=== PATIENT | female | born 1960 | race Caucasian/White ===

== ENCOUNTER 2018-06-11 15:51 | Inpatient (IN) | payer MEDICARE ==
[2018-06-11] MEDS ORDERED: Nicotine Inhaler* 10 MG AMP INH PRN (16:05)
[2018-06-11 16:30] LABS: Hematocrit 41 % (35-47); Hemoglobin 14.1 g/dl (12.0-16.0); Mean Corpuscular HGB Conc 34 g/dl (31-36); Mean Corpuscular Hemoglobin 29 pg (27-31); Mean Corpuscular Volume 85 fL (80-97); Mean Platelet Volume 10.2 fL (7.4-10.4); Platelet Count 193 10^3/ul (150-450); Red Blood Count 4.86 10^6/ul (4.00-5.40); Red Cell Distribution Width 14 % (10.5-15); White Blood Count 7.6 10^3/ul (3.5-10.8)
[2018-06-11 16:46] LABS: ALT 19 U/L (7-52); AST 26 U/L (13-39); Albumin 4.8 g/dL (3.2-5.2); Albumin/Globulin Ratio 1.7 (1-3); Alkaline Phosphatase 78 U/L (34-104); Anion Gap 15 mmol/L (2-11); BUN/Creatinine Ratio 25.6 (8-20); Blood Urea Nitrogen 21 mg/dL (6-24); CO2 Carbon Dioxide 19 mmol/L (22-32); Chloride 103 mmol/L (101-111); EGFR Non-African American 71.9 (>60); Globulin 2.8 g/dL (2-4); Glucose 100 mg/dL (70-100); Potassium 3.5 mmol/L (3.5-5.0); Sodium 137 mmol/L (135-145); Total Protein 7.6 g/dL (6.4-8.9)
[2018-06-11] MEDS ORDERED: LORazepam TAB(*) 1 MG PO ONE (16:49)
[2018-06-11 16:53] LABS: ABS Basophils 0 10^3/ul (0-0.2); ABS Eosinophils 0.1 10^3/ul (0-0.6); ABS Lymphocytes 2.2 10^3/ul (1.0-4.8); ABS Monocytes 0.7 10^3/ul (0-0.8); ABS Neutrophils 4.5 10^3/ul (1.5-7.7)
--- NOTE | 2018-06-11 16:53 | ED ---
Psychiatric Complaint - HPI Summary HPI Summary: This patient is a 57 year old F brought in by the police with a chief complaint of confusion and erratic driving since just AP[employer]EARCH[employer]. The patient rates the pain 10/ 10 in severity. Patient reports hearing voices and severe sadness. Patient denies SI or HI. The patient was picked up by police after driving and running into things. It was determined that she is having a mental health crisis and this is not due to drugs/alcohol. The patient states she is tired and trying to take care of everyone. The patient is talkative and cooperative, but also tearful. Pt states she has a torn rotator cuff on the right side. Pt states she recently had to sell her house and current lives with her great aunt, who has a lot of health issues. She cannot recall her medication. The patient doesnt think she has a psychiatric disorder and her doctor would give her any medication she wants. The voices in her head are telling her to go home, to the kids, but they are in their 30s and no longer live with her. Patient reports that she has not had any alcohol or drugs today. - History Of Current Complaint Chief Complaint: EDMentalHealth Time Seen by Provider: 06/11/18 16:04 Hx Obtained From: Patient Onset/Duration: Sudden Onset Character: Depressed Aggravating Factor(s): Recent Stress - Allergies/Home Medications Allergies/Adverse Reactions: Allergies Allergy/AdvReac Type Severity Reaction Status Date / Time Adhesive Tape Allergy Rash Verified 06/11/18 16:03 Iodinated Contrast- Oral and Allergy Anaphylatic Verified 06/11/18 16:03 IV Dye Shock latex Allergy Rash Verified 06/11/18 16:03 mesalamine Allergy Muscle Ache Verified 06/11/18 16:03 Sulfa (Sulfonamide Allergy Unknown Verified 06/11/18 16:03 Antibiotics) Reaction Details sumatriptan Allergy Difficulty Verified 06/11/18 16:03 Breathing PMH/Surg Hx/FS Hx/Imm Hx Endocrine/Hematology History: Denies: Hx Diabetes Cardiovascular History: Reports: Hx Hypertension Denies: Hx Pacemaker/ICD Respiratory History: Reports: Hx Asthma, Hx Chronic Obstructive Pulmonary Disease (COPD) History: Denies: Hx Renal Disease Sensory History: Denies: Hx Hearing Aid Psychiatric History: Denies: Hx Panic Disorder - Cancer History Cancer Type, Location and Year: BASAL CELL NOSE. BACK OF HIP - Surgical History Surgery Procedure, Year, and Place: 3 C SECTIONS. 6X LEFT KNEE SURGERY-TOTAL LEFT KNEE REPLACEMENT 2009. ENDOMETRIAL ABLASION Infectious Disease History: No Infectious Disease History: Denies: Traveled Outside the [place] in Last 30 Days - Family History Known Family History: Positive: Unknown - difficulties remembering - Social History Lives: With Family - great aunt Review of Systems Positive: Other - tearful Positive: Other - severe sadness, hearing voices, confusion All Other Systems Reviewed And Are Negative: Yes Physical Exam - Summary Physical Exam Summary: GENERAL: Patient is a well-developed and nourished female who is lying comfortable in the stretcher. Patient is not in any acute respiratory distress. HEAD AND FACE: Normocephalic EYES: PERRLA, EOMI x 2. EARS: Hearing grossly intact. MOUTH: Oropharynx within normal limits. NECK: Supple, trachea is midline, no adenopathy, no JVD, no carotid bruit. CHEST: Symmetric, no tenderness at palpation LUNGS: Clear to auscultation bilaterally. No wheezing or crackles. CVS: Regular rate and rhythm, S1 and S2 present, no murmurs or gallops appreciated. ABDOMEN: Soft, non-tender. Bowel sounds are normal. No abdominal abnormal pulsations. EXTREMITIES: Full ROM in all major joints, no edema, no cyanosis or clubbing. NEURO: Alert and oriented x 3. No acute neurological deficits. Speech is normal and follows commands. SKIN: Dry and warm Psych: labile affect, but its mainly sad. Positive auditory hallucinations. No SI or HI. Triage Information Reviewed: Yes Vital Signs On Initial Exam: Initial Vitals Temp Pulse Resp BP Pulse Ox 99.2 F 105 16 138/104 96 06/11/18 15:56 06/11/18 15:56 06/11/18 15:56 06/11/18 15:56 06/11/18 15:56 Vital Signs Reviewed: Yes Diagnostics - Vital Signs Vital Signs Temp Pulse Resp BP Pulse Ox 06/11/18 15:56 99.2 F 105 16 138/104 96 - Laboratory Lab Results: Lab Results 06/11/18 06/11/18 Range/Units 16:20 16:20 WBC 7.6 (3.5-10.8) 10^3/ul RBC 4.86 (4.00-5.40) 10^6/ul Hgb 14.1 (12.0-16.0) g/dl Hct 41 (35-47) % MCV 85 (80-97) fL MCH 29 (27-31) pg MCHC 34 (31-36) g/dl RDW 14 (10.5-15) % Plt Count 193 (150-450) 10^3/ul MPV 10.2 (7.4-10.4) fL Neut % (Auto) Pending Lymph % (Auto) Pending Gibson % (Auto) Pending Eos % (Auto) Pending Baso % (Auto) Pending Absolute Neuts (auto) Pending Absolute Lymphs (auto) Pending Absolute Monos (auto) Pending Absolute Eos (auto) Pending Absolute Basos (auto) Pending Absolute Nucleated RBC Pending Nucleated RBC % Pending Sodium 137 (135-145) mmol/L Potassium 3.5 (3.5-5.0) mmol/L Chloride 103 (101-111) mmol/L Carbon Dioxide 19 L (22-32) mmol/L Anion Gap 15 H (2-11) mmol/L BUN 21 (6-24) mg/dL Creatinine 0.82 (0.51-0.95) mg/dL Est GFR ( Amer) 86.9 (>60) Est GFR (Non-Af Amer) 71.9 (>60) BUN/Creatinine Ratio 25.6 H (8-20) Glucose 100 (70-100) mg/dL Calcium 10.0 (8.6-10.3) mg/dL Total Bilirubin 0.70 (0.2-1.0) mg/dL AST 26 (13-39) U/L ALT 19 (7-52) U/L Alkaline Phosphatase 78 (34-104) U/L Total Protein 7.6 (6.4-8.9) g/dL Albumin 4.8 (3.2-5.2) g/dL Globulin 2.8 (2-4) g/dL Albumin/Globulin Ratio 1.7 (1-3) TSH Pending Salicylates Pending Acetaminophen Pending Serum Alcohol Pending Result Diagrams: 18 16:20 18 16:20 Lab Statement: Any lab studies that have been ordered have been reviewed, and results considered in the medical decision making process. Re-Evaluation - Re-Evaluation First Eval Re-Evaluation Time: 17:20 Comment: The patient was found to have Crohn's, lyme disease, diabetes, and lupus, all of which she has not been taking her medication for Course/Dx - Course Course Of Treatment: This patient is a 57 year old F brought in by the police with a chief complaint of confusion and erratic driving since just APPLIED RESEARCHER. The patient rates the pain 10/10 in severity. Patient reports hearing voices and severe sadness. Patient denies SI or HI. Test results with no significant abnormalities. In the ED course the patient was given a Nicotine inhaler, IV fluids, and Lorazepam. The patient will be signed out by Dr. Estevez to Dr. Murillo , awaiting mental health evaluation. - Differential Dx/Clinical Impression Provider Diagnosis: Psychiatric illness Discharge - Sign-Out/Discharge Documenting (check all that apply): Sign-Out Patient Signing out patient TO: Haja Murillo - Discharge Plan Referrals: Pelon Garcia, [Primary Care Provider] - - Attestation Statements Document Initiated by Scribe: Yes Documenting Scribe: Anmol Hsu Provider For Whom Cheryle is Documenting (Include Credential): Giacomo Estevez MD Scribe Attestation: Anmol Sauceda scribed for Giacomo Estevez MD on 06/11/18 at 1842. Scribe Documentation Reviewed: Yes Provider Attestation: The documentation as recorded by the Anmol gutierrez accurately reflects the service I personally performed and the decisions made by me, Giacomo Estevez MD Status of Scribe Document: Viewed
[2018-06-11 16:57] LABS: ABS Neutrophils 4.18 10^3/ul (1.5-7.7); Lymphocytes % 38 %; Monocytes % 5 %; Neutrophil % 55 %
[2018-06-11 16:58] LABS: ABS Basophils 0.076 10^3/ul (0-0.2); ABS Eosinophils 0.076 10^3/ul (0-0.6)
[2018-06-11] MEDS ORDERED: NS 0.9% 1000 ML* 1,000 ML IV ONE (17:09)
[2018-06-11] MEDS ORDERED: LORazepam INJ* 2 MG/ML 1 ML VIAL IV PUSH ONE (17:09)
[2018-06-11 17:13] LABS: Acetaminophen < 15 mcg/mL; Alcohol < 10 mg/dL (<10); Salicylate < 2.50 mg/dL (<30)
--- NOTE | 2018-06-11 19:07 | ED ---
Progress - Progress Note Progress Note: Patient is received as a sign out from Dr. Estevez to Dr. Murillo at 1900 06/11/18 shift change pending E. 0127 - Patient's case was reviewed by Dr. Sepulveda, patient to be involuntarily admitted with Dx bipolar disorder with psychosis. Dr. Murillo is agreeable with this plan. - Consult/PCP Time Called: 17:20 Re-Evaluation - Re-Evaluation First Eval Re-Evaluation Time: 17:20 Comment: The patient was found to have Crohn's, lyme disease, diabetes, and lupus, all of which she has not been taking her medication for Course/Dx - Course Course Of Treatment: Patient is received as a sign out from Dr. Estevez to Dr. Murillo at 1900 06/11/18 shift change pending E. 0127 - Patient's case was reviewed by Dr. Sepulveda, patient to be involuntarily admitted with Dx bipolar disorder with psychosis. Dr. Murillo is agreeable with this plan. - Diagnoses Provider Diagnoses: Bipolar disorder with psychotic features - Provider Notifications Discussed Care Of Patient With: Waqas Sepulveda Time Discussed With Above Provider: 01:27 Instructed by Provider To: Other - 0127 - Patient's case was reviewed by Dr. Sepulveda, patient to be involuntarily admitted with Dx bipolar disorder with psychosis. Dr. Murillo is agreeable with this plan. Discharge - Sign-Out/Discharge Documenting (check all that apply): Patient Departure - admit - Discharge Plan Condition: Good [place] [place]errals: Pelon Garcia, [Primary Care Provider] - - Attestation Statements Document Initiated by Scribe: Yes Documenting Scribe: LILIBETH GONZALES Provider For Whom Klaudiaibjoe is Documenting (Include Credential): GERA MURILLO MD Scribjoe Attestation: LILIBETH Sauceda , scribed for GERA MURILLO MD on 06/12/18 at 0132. Status of Scribe Document: Ready
[2018-06-12] MEDS ORDERED: diPHENhydraMINE PO* 50 MG ONE (01:38)
[2018-06-12] MEDS ORDERED: OLANzapine TAB* 5 MG ONE (01:38)
[2018-06-12] MEDS ORDERED: Al Hydrox/Mg Hydrox/Simet LIQ* 30 ML UDC PO PRN (03:02)
[2018-06-12] MEDS ORDERED: OLANzapine TAB* 5 MG PO ONE (03:15)
[2018-06-12] MEDS: Acetaminophen TAB* 325 MG PO PRN ×2 (03:45→09:18)
[2018-06-12] MEDS: Vitamin THERAPEUTIC TAB PO SCH (08:34)
[2018-06-12] MEDS ORDERED: clonazePAM TAB(*) 1 MG PO ONE (12:30)
[2018-06-12] MEDS ORDERED: LORazepam TAB(*) 1 MG PO SCH (13:00)
[2018-06-12] MEDS: celeCOXIB CAP* 100 MG PO SCH (13:01)
[2018-06-12] MEDS: Atenolol TAB* 25 MG PO SCH (13:01)
[2018-06-12] MEDS: Sertraline* 50 MG TAB PO SCH (13:01)
[2018-06-12] MEDS: Omeprazole CAP* 20 MG PO SCH (18:35)
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
[2018-06-12] MEDS: QUEtiapine TAB* 100 MG PO SCH (21:00)
[2018-06-13] MEDS: Omeprazole CAP* 20 MG PO SCH (11:10)
[2018-06-13] MEDS: Sertraline* 50 MG TAB PO SCH (11:10)
[2018-06-13] MEDS: Atenolol TAB* 25 MG PO SCH (11:10)
[2018-06-13] MEDS: Thiamine TAB* 100 MG TAB PO SCH (11:11)
[2018-06-13] MEDS: celeCOXIB CAP* 100 MG PO SCH (11:11)
[2018-06-13] MEDS: Folic Acid TAB* 1 MG PO SCH (11:12)
[2018-06-13] MEDS: Vitamin THERAPEUTIC TAB PO SCH (11:12)
[2018-06-13] MEDS ORDERED: Spiriva Inhaler DEVICE* 1 EACH DEVICE INH SCH (14:00)
[2018-06-13] MEDS ORDERED: Spiriva Inhaler DEVICE* 1 EACH DEVICE SCH (14:00)
[2018-06-13] MEDS: Cyclobenzaprine TAB* 10 MG PO PRN ×2 (14:03→19:27)
[2018-06-13] MEDS: Aspirin EC TAB* 81 MG TAB.EC PO SCH ×2 (14:04→14:06)
[2018-06-13] MEDS: Mometasone/Formoter 200/5 MDI INH SCH ×2 (15:23→19:34)
[2018-06-13] MEDS: Hydroxychloroquine TAB* 200 MG PO SCH (15:39)
--- NOTE | 2018-06-13 16:24 | PN ---
Subjective - Subjective Date of Service: 06/13/18 Service Type: 80639 Hosp care 35 min high complexity Subjective: patient is labile and disorganized. she is circumstantial about medications and expresses imminent need; however, later in conversation she reports being out of medications for weeks. patient endorses ideas of reference and paranoia. she states that she heard voices from her [employer] advocate in [employer] giving her directions to [facility] she states this facility is made up of "make believe doctors and make believe housekeepers." She states that the unit supervisor assembly department is actually the cad administrator at the hotel in [place]. She states that she believes her room is "miked" and being recorded. 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 She states she will politely decline antipsychotics and disagrees with diagnosis of bipolar disorder. Objective - Appearance Appearance: Well Developed/Nourished Assessment - Assessment Merits Inpatient Hospitalization: For Immediate Safety, For Stabilization, Diagnosis Determination, For Ongoing Evaluation Inpatient DSM-V Dx: F31.64 Clinical Impression: 57yo wf who presented to ED via police due to erratic driving and disorganized behavior. Minimal collateral information obtained denotes a history of bipolar disorder and probable cannabis use disorder. Patient continues to present as floridly psychotic. Patient merits hospitalization for immediate safety and stabilization. Plan - Plan Treatment Plan: Name: MILLICENT SPARKS Birthdate: 1960 [id number] continue acute intensive psychiatric treatment. continue to offer psychiatric medications. will consider Treatment Over Objection if no improvement. obtain PT consult due to knee pain. Continued Medication Management: Start Medication Medications: Current Medications Acetaminophen (Tylenol Tab*) 650 mg PO Q4H PRN PRN Reason: PAIN or TEMP > 101 F Last Admin: 06/12/18 09:18 Dose: 650 mg Al Hydrox/Mg Hydrox/Simethicone (Maalox Plus*) 30 ml PO Q4H PRN PRN Reason: INDIGESTION Albuterol (Ventolin Hfa Inhaler*) 2 puff INH Q4H PRN PRN Reason: SOB/WHEEZING Aspirin (Aspirin Ec Tab*) 81 mg PO DAILY [facility] Last Admin: 06/13/18 14:06 Dose: Not Given Atenolol (Tenormin Tab*) 25 mg PO DAILY [facility] Last Admin: 06/13/18 11:10 Dose: 25 mg Celecoxib (Celebrex Cap*) 200 mg PO DAILY [facility] Chlorpromazine HCl (Thorazine Tab*) 50 mg PO Q6H PRN PRN Reason: AGITATION Cyclobenzaprine HCl (Flexeril Tab*) 10 mg PO DAILY PRN PRN Reason: pain Last Admin: 06/13/18 14:03 Dose: 10 mg Device (Tiotropium Inhaler Device*) 1 each INH .USE w/ SPIRIVA CAPS [facility] Diphenhydramine HCl (Benadryl Po*) 50 mg PO Q6H PRN PRN Reason: AGITATION/INSOMNIA Last Admin: 06/13/18 14:04 Dose: 50 mg Folic Acid (Folvite Tab*) 1 mg PO DAILY [facility] Last Admin: 06/13/18 11:12 Dose: 1 mg Hydroxychloroquine Sulfate (Plaquenil Tab*) 200 mg PO DAILY [facility] Last Admin: 06/13/18 15:39 Dose: 200 mg Lorazepam (Ativan Tab(*)) 0 - 6 mg PO .PER [facility] PROTOCOL [facility]; Protocol Last Admin: 06/12/18 21:40 Dose: 2 mg Mometasone Furoate/Formoterol Fumar (Dulera 200/5 Mdi*) 2 puff INH BID [facility] Last Admin: 06/13/18 15:23 Dose: Not Given Montelukast Sodium (Singulair Tab*) 10 mg PO BEDTIME [facility] Multivitamins (Theragran Tab*) 1 tab PO DAILY [facility] Last Admin: 06/13/18 11:12 Dose: 1 tab Nicotine (Nicotine Inhaler*) 10 mg INH Q2H PRN PRN Reason: CRAVING Omeprazole (Prilosec Cap*) 20 mg PO DAILY [facility] Last Admin: 06/13/18 11:10 Dose: 20 mg Quetiapine Fumarate (Seroquel Tab*) 100 mg PO BEDTIME [facility] Last Admin: 06/12/18 21:00 Dose: Not Given Sertraline HCl (Zoloft*) 50 mg PO DAILY [facility] Last Admin: 06/13/18 11:10 Dose: 50 mg Thiamine HCl (Vitamin B-1 Tab*) 100 mg PO DAILY [facility] Last Admin: 06/13/18 11:11 Dose: 100 mg Tiotropium [place] (Spiriva Cap.Inh*) 1 cap INH DAILY [facility] - Discharge Plan Discharge Plan: Inpatient Hospitalization
[2018-06-13] MEDS: Tiotropium CAP.INH* CAP.INH/18 MCG (USE ORDER SET !) INH SCH (16:45)
[2018-06-13] MEDS: QUEtiapine TAB* 100 MG PO SCH ×2 (19:23→22:42)
[2018-06-13] MEDS: Montelukast Sodium TAB* 10 MG PO SCH (19:23)
[2018-06-14] MEDS: Vitamin THERAPEUTIC TAB PO SCH (09:40)
[2018-06-14] MEDS: Hydroxychloroquine TAB* 200 MG PO SCH (09:40)
[2018-06-14] MEDS: Omeprazole CAP* 20 MG PO SCH (09:41)
[2018-06-14] MEDS: Mometasone/Formoter 200/5 MDI INH SCH ×2 (09:41→21:02)
[2018-06-14] MEDS: Tiotropium CAP.INH* CAP.INH/18 MCG (USE ORDER SET !) INH SCH (09:42)
[2018-06-14] MEDS: Sertraline* 50 MG TAB PO SCH (09:43)
[2018-06-14] MEDS: Atenolol TAB* 25 MG PO SCH (09:43)
[2018-06-14] MEDS: Folic Acid TAB* 1 MG PO SCH (09:44)
[2018-06-14] MEDS: Aspirin EC TAB* 81 MG TAB.EC PO SCH (09:44)
[2018-06-14] MEDS: Thiamine TAB* 100 MG TAB PO SCH (09:44)
[2018-06-14] MEDS: celeCOXIB CAP* 100 MG PO SCH (09:45)
--- NOTE | 2018-06-14 11:34 | PN ---
[facility]: Group Therapy Note - Service Type Service Type: 40016 Group Psychotherapy - Cognitive Behavioral Group Therapy ( CBT):Patient was attentive and participatory in CBT programming this morning, and remained in good behavioral control. Patient expressed positive insights regarding relevant treatment interventions and goals.
[2018-06-14] MEDS: Acetaminophen TAB* 325 MG PO PRN (13:55)
[2018-06-14] MEDS: Cyclobenzaprine TAB* 10 MG PO PRN (13:57)
[2018-06-14] MEDS ORDERED: Lurasidone(*) 40 MG TAB PO SCH (17:00)
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
[2018-06-14] MEDS: Montelukast Sodium TAB* 10 MG PO SCH (21:02)
[2018-06-15] MEDS: Acetaminophen TAB* 325 MG PO PRN (03:05)
[2018-06-15] MEDS: Omeprazole CAP* 20 MG PO SCH (09:03)
[2018-06-15] MEDS: Aspirin EC TAB* 81 MG TAB.EC PO SCH (09:03)
[2018-06-15] MEDS: Vitamin THERAPEUTIC TAB PO SCH (09:03)
[2018-06-15] MEDS: Folic Acid TAB* 1 MG PO SCH (09:04)
[2018-06-15] MEDS: celeCOXIB CAP* 100 MG PO SCH (09:04)
[2018-06-15] MEDS: Thiamine TAB* 100 MG TAB PO SCH (09:04)
[2018-06-15] MEDS: Hydroxychloroquine TAB* 200 MG PO SCH (09:05)
[2018-06-15] MEDS: Tiotropium CAP.INH* CAP.INH/18 MCG (USE ORDER SET !) INH SCH (09:05)
[2018-06-15] MEDS: Atenolol TAB* 25 MG PO SCH (09:05)
[2018-06-15] MEDS: Mometasone/Formoter 200/5 MDI INH SCH ×2 (09:06→21:57)
--- NOTE | 2018-06-15 15:52 | PN ---
Subjective - Subjective Date of Service: 06/15/18 Service Type: [id number] Hosp care 25 min moderate complexity Subjective: Patient continues to present with labile mood and delusional ideation. She is unable to tolerate feedback about symptoms and attributes behavior to circumstances. [See SW notes obtaining collateral to the contrary.] Patient reports concern that her physical health is not being treated. Initially, patient agrees to utilize hospitalization to decrease polypharmacy then later repeats need for more analgesic medications. She is defensive when technical writer attempts to discuss prioritization of mental health. She states "fine! take them all away. I won't take any medications." Objective - Appearance Appearance: Well Developed/Nourished Dysmorphic Features: Yes Hygiene: Normal Grooming: Well Kept - Behavior Psychomotor Activities: Normal Exhibits Abnormal Movement: No - Attitude and Relatedness Attitude and Relatedness: Psychotically Related Eye Contact: Fair - Speech Quality: Pressured Latencies: Normal Quantity: Copious - Mood Patient's Decription of Mood: "Upset" - Affect Observed Affect: Labile Affect Consistent with: Euphoria - Thought Process Patient's Thought Process: Disorganized Thought Content: Yes Paranoid Ideation, No Passive Wish, No Suicidal Planning, No Homicidal Ideation - Sensorium Experiencing Hallucinations: No, Sensorium is Clear Type of Hallucinations: Visual: No, Auditory: No, Command: No - Level of Consciousness Level of Consciousness: Alert Orientation: Yes Intact, Yes Orientated to Time, Yes Orientated to Place, Yes Orientated to Person - Impulse Control Impulse Control: Impaired - Insight and Judgement Insight and Judgement: Impaired - Group Participation Particating in Group Activities: Yes - Medication Management Medication Management Adherence: Yes Assessment - Assessment Merits Inpatient Hospitalization: For Immediate Safety, For Stabilization Inpatient DSM-V Dx: F31.64 Clinical Impression: 57yo wf who presented to ED via police due to erratic driving and disorganized behavior. Minimal collateral information obtained denotes a history of bipolar disorder, PTSD, and probable cannabis use disorder. Patient continues to present as manic with delusional ideation. Patient merits hospitalization for immediate safety and stabilization. Plan - Plan Treatment Plan: Name: MILLICENT SPARKS Birthdate: 1960 [id number] continue acute intensive psychiatric treatment. continue to offer psychiatric medications. will consider Treatment Over Objection if no improvement. increase lurasidone to 80mg daily. consider pain clinic consultation when patient more organized. Continued Medication Management: Different Medication Medications: Current Medications Acetaminophen (Tylenol Tab*) 650 mg PO Q4H PRN PRN Reason: PAIN or TEMP > 101 F Last Admin: 06/15/18 03:05 Dose: 650 mg Al Hydrox/Mg Hydrox/Simethicone (Maalox Plus*) 30 ml PO Q4H PRN PRN Reason: INDIGESTION Albuterol (Ventolin Hfa Inhaler*) 2 puff INH Q4H PRN PRN Reason: SOB/WHEEZING Aspirin (Aspirin Ec Tab*) 81 mg PO DAILY [facility] Last Admin: 06/15/18 09:03 Dose: 81 mg Atenolol (Tenormin Tab*) 25 mg PO DAILY [facility] Last Admin: 06/15/18 09:05 Dose: 25 mg Celecoxib (Celebrex Cap*) 200 mg PO DAILY [facility] Last Admin: 06/15/18 09:04 Dose: 200 mg Chlorpromazine HCl (Thorazine Tab*) 50 mg PO Q6H PRN PRN Reason: AGITATION Cyclobenzaprine HCl (Flexeril Tab*) 10 mg PO DAILY PRN PRN Reason: pain Last Admin: 06/14/18 13:57 Dose: 10 mg Device (Tiotropium Inhaler Device*) 1 each INH .USE w/ SPIRIVA CAPS [facility] Diphenhydramine HCl (Benadryl Po*) 50 mg PO Q6H PRN PRN Reason: AGITATION/INSOMNIA Last Admin: 06/15/18 03:05 Dose: 50 mg Folic Acid (Folvite Tab*) 1 mg PO DAILY [facility] Last Admin: 06/15/18 09:04 Dose: 1 mg Hydroxychloroquine Sulfate (Plaquenil Tab*) 200 mg PO DAILY [facility] Last Admin: 06/15/18 09:05 Dose: 200 mg Lorazepam (Ativan Tab(*)) 0 - 6 mg PO .PER [facility] PROTOCOL [facility]; Protocol Last Admin: 06/12/18 21:40 Dose: 2 mg Lurasidone HCl (Latuda) 80 mg PO 1700 [facility] Melatonin (Melatonin) 3 mg PO BEDTIME [facility]; Protocol Mometasone Furoate/Formoterol Fumar (Dulera 200/5 Mdi*) 2 puff INH BID [facility] Last Admin: 06/15/18 09:06 Dose: 2 puff Montelukast Sodium (Singulair Tab*) 10 mg PO BEDTIME [facility] Last Admin: 06/14/18 21:02 Dose: 10 mg Multi-Ingredient Mouthwash/Gargle (Magic M W2 Janak/Maal/Nyst/Lido*) 5 ml SWISH SPIT QID PRN PRN Reason: mouth pain Multivitamins (Theragran Tab*) 1 tab PO DAILY [facility] Last Admin: 06/15/18 09:03 Dose: 1 tab Nicotine (Nicotine Inhaler*) 10 mg INH Q2H PRN PRN Reason: CRAVING Omeprazole (Prilosec Cap*) 20 mg PO DAILY [facility] Last Admin: 06/15/18 09:03 Dose: 20 mg Thiamine HCl (Vitamin B-1 Tab*) 100 mg PO DAILY [facility] Last Admin: 06/15/18 09:04 Dose: 100 mg Tiotropium [place] (Spiriva Cap.Inh*) 1 cap INH DAILY [facility] Last Admin: 06/15/18 09:05 Dose: 1 cap - Discharge Plan Discharge Plan: Inpatient Hospitalization
[2018-06-15] MEDS: Cyclobenzaprine TAB* 10 MG PO PRN (17:09)
[2018-06-15] MEDS: Lurasidone(*) 80 MG TAB PO SCH (17:09)
[2018-06-15] MEDS: Montelukast Sodium TAB* 10 MG PO SCH (21:57)
[2018-06-15] MEDS: Melatonin 3 MG TAB PO SCH (21:57)
[2018-06-16] MEDS: Cyclobenzaprine TAB* 10 MG PO PRN ×3 (01:32→21:01)
[2018-06-16] MEDS: Acetaminophen TAB* 325 MG PO PRN ×2 (01:32→12:40)
[2018-06-16] MEDS: chlorproMAZINE TAB* 50 MG Q6H PRN AGITATION PO (02:37)
[2018-06-16] MEDS: Omeprazole CAP* 20 MG PO SCH (09:51)
[2018-06-16] MEDS: Vitamin THERAPEUTIC TAB PO SCH (09:51)
[2018-06-16] MEDS: Aspirin EC TAB* 81 MG TAB.EC PO SCH (09:51)
[2018-06-16] MEDS: Folic Acid TAB* 1 MG PO SCH (09:51)
[2018-06-16] MEDS: Thiamine TAB* 100 MG TAB PO SCH (09:51)
[2018-06-16] MEDS: Tiotropium CAP.INH* CAP.INH/18 MCG (USE ORDER SET !) INH SCH (09:52)
[2018-06-16] MEDS: Mometasone/Formoter 200/5 MDI INH SCH ×2 (09:54→21:00)
[2018-06-16] MEDS: celeCOXIB CAP* 100 MG PO SCH (09:54)
[2018-06-16] MEDS: Hydroxychloroquine TAB* 200 MG PO SCH ×2 (09:54→20:56)
[2018-06-16] MEDS: Atenolol TAB* 25 MG PO SCH ×2 (09:54→20:56)
[2018-06-16] MEDS ORDERED: Adalimumab (NF) 40 MG/0.8 ML KIT _- DISPENSE @ no charge- _ SUBCUT ONE (15:52)
--- NOTE | 2018-06-16 17:00 | PN ---
Subjective - Subjective Date of Service: 06/16/18 Service Type: [id number] Hosp care 25 min moderate complexity Subjective: Patient reports much difficulty sleeping and c/o significant pain. Special Education Paraprofessional reviews medication list from PCP, Dr Garcia with patient. We discuss implication of benzodiazepine dependence and tolerance. Patient presents as cooperative and seemingly agreeable with diagnosis and treatment plan. She is tearful when discussing wanting to return home to [place] and her family. She reports pain in coccyx and requests xray. Objective - Appearance Appearance: Obese Dysmorphic Features: Yes Hygiene: Normal Grooming: Well Kept - Behavior Psychomotor Activities: Normal Exhibits Abnormal Movement: No - Attitude and Relatedness Attitude and Relatedness: Cooperative Eye Contact: Good - Speech Quality: Unpressured Latencies: Normal Quantity: Appropriate - Mood Patient's Decription of Mood: "Okay" - Affect Observed Affect: Expansive Affect Consistent with: Euphoria - Thought Process Patient's Thought Process: Circumstantial Thought Content: No Passive Wish, No Suicidal Planning, No Homicidal Ideation, No Paranoid Ideation - Sensorium Experiencing Hallucinations: No, Sensorium is Clear Type of Hallucinations: Visual: No, Auditory: No, Command: No - Level of Consciousness Level of Consciousness: Alert Orientation: Yes Intact, Yes Orientated to Time, Yes Orientated to Place, Yes Orientated to Person - Impulse Control Impulse Control: Impaired - Insight and Judgement Insight and Judgement: Impaired - Group Participation Particating in Group Activities: Yes - Medication Management Medication Management Adherence: Yes Assessment - Assessment Merits Inpatient Hospitalization: For Immediate Safety, For Stabilization Inpatient DSM-V Dx: F31.64 Clinical Impression: 57yo wf who presented to ED via police due to erratic driving and disorganized behavior. Minimal collateral information obtained denotes a history of bipolar disorder, PTSD, and probable cannabis use disorder. Patient continues to present as manic with delusional ideation. Patient merits hospitalization for immediate safety and stabilization. MHU: Problem List - Patient Problems (1) Bipolar 1 disorder, mixed Current Visit: Yes Status: Acute Priority: High Code(s): F31.60 - BIPOLAR DISORDER, CURRENT EPISODE MIXED, UNSPECIFIED SNOMED Code(s): 82595682 Plan - Plan Treatment Plan: Name: MILLICENT SPARKS Birthdate: 1960 [id number] continue acute intensive psychiatric treatment. may decrease to q30min observation and allow computer use/staff pass. add lidocaine patch, voltaren gel. increase atenolol to 25mg BID, change plaquenil to 100mg BID. add ambien prn insomnia. discharge planning to include family members in [place]. Continued Medication Management: Different Medication Medications: Current Medications Acetaminophen (Tylenol Tab*) 650 mg PO Q4H PRN PRN Reason: PAIN or TEMP > 101 F Last Admin: 06/16/18 12:40 Dose: 650 mg Al Hydrox/Mg Hydrox/Simethicone (Maalox Plus*) 30 ml PO Q4H PRN PRN Reason: INDIGESTION Albuterol (Ventolin Hfa Inhaler*) 2 puff INH Q4H PRN PRN Reason: SOB/WHEEZING Aspirin (Aspirin Ec Tab*) 81 mg PO DAILY [facility] Last Admin: 06/16/18 09:51 Dose: 81 mg Atenolol (Tenormin Tab*) 25 mg PO DAILY [facility] Last Admin: 06/16/18 09:54 Dose: 25 mg Celecoxib (Celebrex Cap*) 200 mg PO DAILY [facility] Last Admin: 06/16/18 09:54 Dose: 200 mg Chlorpromazine HCl (Thorazine Tab*) 50 mg PO Q6H PRN PRN Reason: AGITATION Last Admin: 06/16/18 02:37 Dose: 50 mg Cyclobenzaprine HCl (Flexeril Tab*) 10 mg PO DAILY PRN PRN Reason: pain Last Admin: 06/16/18 09:58 Dose: 10 mg Device (Tiotropium Inhaler Device*) 1 each INH .USE w/ SPIRIVA CAPS [facility] Diclofenac Sodium (Voltaren 1% Gel (Nf)) 1 applic TOPICAL DAILY [facility]; Protocol Diphenhydramine HCl (Benadryl Po*) 50 mg PO Q6H PRN PRN Reason: AGITATION/INSOMNIA Last Admin: 06/16/18 09:57 Dose: 50 mg Folic Acid (Folvite Tab*) 1 mg PO DAILY [facility] Last Admin: 06/16/18 09:51 Dose: 1 mg Hydroxychloroquine Sulfate (Plaquenil Tab*) 200 mg PO BID [facility] Lidocaine (Lidoderm 5% Patch*) 1 patch TRANSDERM DAILY [facility] Lorazepam (Ativan Tab(*)) 0 - 6 mg PO .PER [facility] PROTOCOL [facility]; Protocol Last Admin: 06/12/18 21:40 Dose: 2 mg Lurasidone HCl (Latuda) 80 mg PO 1700 [facility] Last Admin: 06/15/18 17:09 Dose: 80 mg Melatonin (Melatonin) 3 mg PO BEDTIME [facility]; Protocol Last Admin: 06/15/18 21:57 Dose: 3 mg Mometasone Furoate/Formoterol Fumar (Dulera 200/5 Mdi*) 2 puff INH BID [facility] Last Admin: 06/16/18 09:54 Dose: 2 puff Montelukast Sodium (Singulair Tab*) 10 mg PO BEDTIME [facility] Last Admin: 06/15/18 21:57 Dose: 10 mg Multi-Ingredient Mouthwash/Gargle (Magic M W2 [place]/Maal/Nyst/Lido*) 5 ml SWISH SPIT QID PRN PRN Reason: mouth pain Multivitamins (Theragran Tab*) 1 tab PO DAILY [facility] Last Admin: 06/16/18 09:51 Dose: 1 tab Nicotine (Nicotine Inhaler*) 10 mg INH Q2H PRN PRN Reason: CRAVING Omeprazole (Prilosec Cap*) 20 mg PO DAILY [facility] Last Admin: 06/16/18 09:51 Dose: 20 mg Pharmacy Profile Note (Lidocaine Patch Remove*) 1 note N/A 2100 [facility] Thiamine HCl (Vitamin B-1 Tab*) 100 mg PO DAILY [facility] Last Admin: 06/16/18 09:51 Dose: 100 mg Tiotropium [place] (Spiriva Cap.Inh*) 1 cap INH DAILY [facility] Last Admin: 06/16/18 09:52 Dose: 1 cap Zolpidem Tartrate (Ambien Tab*) 5 mg PO BEDTIME PRN PRN Reason: INSOMNIA - Discharge Plan Discharge Plan: Inpatient Hospitalization
[2018-06-16] MEDS: Lurasidone(*) 80 MG TAB PO SCH (18:01)
[2018-06-16] MEDS: CMCS: Diclofenac 1% GEL (NF) 100 GM TUBE TOPICAL SCH ×2 (18:02→18:32)
[2018-06-16] MEDS: Lidocaine PATCH 5%* 1 PATCH TRANSDERM SCH (18:03)
[2018-06-16] MEDS: Montelukast Sodium TAB* 10 MG PO SCH (20:56)
[2018-06-16] MEDS: Melatonin 3 MG TAB PO SCH (20:56)
[2018-06-16] MEDS: Lidocaine Patch REMOVE* 1 NOTE MISC SCH (21:02)
[2018-06-17] MEDS: Acetaminophen TAB* 325 MG PO PRN ×2 (04:21→11:40)
[2018-06-17] MEDS: Cyclobenzaprine TAB* 10 MG PO PRN ×2 (04:23→20:46)
[2018-06-17] MEDS: Vitamin THERAPEUTIC TAB PO SCH (09:07)
[2018-06-17] MEDS: Folic Acid TAB* 1 MG PO SCH (09:07)
[2018-06-17] MEDS: Omeprazole CAP* 20 MG PO SCH (09:07)
[2018-06-17] MEDS: Aspirin EC TAB* 81 MG TAB.EC PO SCH (09:07)
[2018-06-17] MEDS: Thiamine TAB* 100 MG TAB PO SCH (09:07)
[2018-06-17] MEDS: Atenolol TAB* 25 MG PO SCH ×2 (09:08→20:44)
[2018-06-17] MEDS: celeCOXIB CAP* 100 MG PO SCH (09:09)
[2018-06-17] MEDS: Hydroxychloroquine TAB* 200 MG PO SCH ×2 (09:10→20:44)
[2018-06-17] MEDS: Tiotropium CAP.INH* CAP.INH/18 MCG (USE ORDER SET !) INH SCH (09:10)
[2018-06-17] MEDS: Mometasone/Formoter 200/5 MDI INH SCH ×2 (09:11→21:34)
[2018-06-17] MEDS: CMCS: Diclofenac 1% GEL (NF) 100 GM TUBE TOPICAL SCH (11:14)
[2018-06-17] MEDS: Lidocaine PATCH 5%* 1 PATCH TRANSDERM SCH (16:27)
[2018-06-17] MEDS: Zolpidem TAB* 5 MG PO PRN (18:44)
[2018-06-17] MEDS: Montelukast Sodium TAB* 10 MG PO SCH ×2 (18:44→21:35)
[2018-06-17] MEDS: Melatonin 3 MG TAB PO SCH ×2 (18:44→21:34)
[2018-06-17] MEDS: Lurasidone(*) 80 MG TAB PO SCH (18:44)
[2018-06-18] MEDS: Acetaminophen TAB* 325 MG PO PRN ×3 (01:45→16:23)
[2018-06-18] MEDS: Lidocaine Patch REMOVE* 1 NOTE MISC SCH (02:56)
[2018-06-18] MEDS: Cyclobenzaprine TAB* 10 MG PO PRN ×2 (06:27→19:09)
[2018-06-18] MEDS: Hydroxychloroquine TAB* 200 MG PO SCH ×2 (09:19→20:24)
[2018-06-18] MEDS: Atenolol TAB* 25 MG PO SCH ×2 (09:20→20:24)
[2018-06-18] MEDS: Aspirin EC TAB* 81 MG TAB.EC PO SCH (09:20)
[2018-06-18] MEDS: Folic Acid TAB* 1 MG PO SCH (09:20)
[2018-06-18] MEDS: Vitamin THERAPEUTIC TAB PO SCH (09:20)
[2018-06-18] MEDS: Thiamine TAB* 100 MG TAB PO SCH (09:20)
[2018-06-18] MEDS: celeCOXIB CAP* 100 MG PO SCH (09:21)
[2018-06-18] MEDS: Omeprazole CAP* 20 MG PO SCH (09:21)
[2018-06-18] MEDS: Tiotropium CAP.INH* CAP.INH/18 MCG (USE ORDER SET !) INH SCH (09:22)
[2018-06-18] MEDS: Mometasone/Formoter 200/5 MDI INH SCH ×2 (09:23→20:24)
[2018-06-18] MEDS: CMCS: Diclofenac 1% GEL (NF) 100 GM TUBE TOPICAL SCH (09:31)
[2018-06-18] MEDS: Lidocaine PATCH 5%* 1 PATCH TRANSDERM SCH (16:14)
[2018-06-18] MEDS: Lurasidone(*) 80 MG TAB PO SCH (16:21)
[2018-06-18] MEDS: Montelukast Sodium TAB* 10 MG PO SCH (20:24)
[2018-06-18] MEDS: Melatonin 3 MG TAB PO SCH (20:24)
[2018-06-18] MEDS: Zolpidem TAB* 5 MG PO PRN (20:24)
[2018-06-19] MEDS: Acetaminophen TAB* 325 MG PO PRN ×3 (00:34→15:47)
[2018-06-19] MEDS: Albuterol HFA INHALER* 8 gm MDI INH PRN (02:52)
[2018-06-19] MEDS: Lidocaine Patch REMOVE* 1 NOTE MISC SCH ×2 (02:54→22:07)
[2018-06-19] MEDS: Atenolol TAB* 25 MG PO SCH ×2 (08:17→21:55)
[2018-06-19] MEDS: celeCOXIB CAP* 100 MG PO SCH (08:17)
[2018-06-19] MEDS: Aspirin EC TAB* 81 MG TAB.EC PO SCH (08:18)
[2018-06-19] MEDS: Omeprazole CAP* 20 MG PO SCH (08:18)
[2018-06-19] MEDS: Thiamine TAB* 100 MG TAB PO SCH (08:18)
[2018-06-19] MEDS: Vitamin THERAPEUTIC TAB PO SCH (08:18)
[2018-06-19] MEDS: Lidocaine PATCH 5%* 1 PATCH TRANSDERM SCH (08:19)
[2018-06-19] MEDS: Folic Acid TAB* 1 MG PO SCH (08:19)
[2018-06-19] MEDS: Hydroxychloroquine TAB* 200 MG PO SCH ×2 (08:19→21:55)
[2018-06-19] MEDS: Mometasone/Formoter 200/5 MDI INH SCH ×2 (08:20→21:56)
[2018-06-19] MEDS: CMCS: Diclofenac 1% GEL (NF) 100 GM TUBE TOPICAL SCH (08:22)
[2018-06-19] MEDS: Tiotropium CAP.INH* CAP.INH/18 MCG (USE ORDER SET !) INH SCH (08:24)
[2018-06-19] MEDS: Cyclobenzaprine TAB* 10 MG PO PRN (10:08)
--- NOTE | 2018-06-19 13:59 | PN ---
Subjective - Subjective Date of Service: 06/19/18 Service Type: [id number] Hosp care 25 min moderate complexity Subjective: Patient is circular with requests and demands. Patient attributes various symptoms to multiple stressors, including her great aunt's decline in health and need to remove belongings from a storage facility. She states she is unable to sleep "because I have so much to do." She is intermittently accepting lurasidone, states she does not want antipsychotic medication or mood stabilizers due to being overmedicated in the past. When music writer attempts to identify agreeable medications, she is defensive and blames circumstances. She continues to assert that people she knows were talking to her through the radio prior to hospitalization. Cloth Doubling Machine Operator requested consult from pain clinic due to patient's history of rheumatoid arthritis, crohn's dz and c/o pain in various locations. Objective - Appearance Appearance: Well Developed/Nourished Dysmorphic Features: Yes Hygiene: Normal Grooming: Well Kept - Attitude and Relatedness Attitude and Relatedness: Needy Eye Contact: Good - Speech Quality: Pressured Latencies: Normal Quantity: Copious - Mood Patient's Decription of Mood: "Anxious" - Affect Observed Affect: Expansive Affect Consistent with: Euphoria - Thought Process Patient's Thought Process: Disorganized, Tangential Thought Content: Yes Paranoid Ideation, No Passive Wish, No Suicidal Planning, No Homicidal Ideation - Sensorium Experiencing Hallucinations: No, Sensorium is Clear Type of Hallucinations: Visual: No, Auditory: No, Command: No - Level of Consciousness Level of Consciousness: Alert Orientation: Yes Intact, Yes Orientated to Time, Yes Orientated to Place, Yes Orientated to Person - Impulse Control Impulse Control: Impaired - Insight and Judgement Insight and Judgement: Impaired - Group Participation Particating in Group Activities: Yes - Medication Management Medication Management Adherence: Partial Assessment - Assessment Merits Inpatient Hospitalization: For Immediate Safety, For Stabilization Inpatient DSM-V Dx: F31.64 Clinical Impression: 57yo wf who presented to ED via police due to erratic driving and disorganized behavior. Minimal collateral information obtained denotes a history of bipolar disorder, PTSD, and probable cannabis use disorder. Patient continues to present as manic with delusional ideation. Patient merits hospitalization for immediate safety and stabilization. MHU: Problem List - Patient Problems (1) Bipolar 1 disorder, mixed Current Visit: Yes Status: Acute Priority: High Code(s): F31.60 - BIPOLAR DISORDER, CURRENT EPISODE MIXED, UNSPECIFIED SNOMED Code(s): 69926073 Plan - Plan Treatment Plan: Name: MILLICENT SPARKS Birthdate: 1960 [id number] continue acute intensive psychiatric treatment. may decrease to q30min observation and allow computer use/staff pass. continue current medications. appreciate pain mgmt consult. discharge planning to include family members in [place]. Continued Medication Management: Start Medication Medications: Current Medications Acetaminophen (Tylenol Tab*) 650 mg PO Q4H PRN PRN Reason: PAIN or TEMP > 101 F Last Admin: 06/19/18 10:07 Dose: 650 mg Al Hydrox/Mg Hydrox/Simethicone (Maalox Plus*) 30 ml PO Q4H PRN PRN Reason: INDIGESTION Albuterol (Ventolin Hfa Inhaler*) 2 puff INH Q4H PRN PRN Reason: SOB/WHEEZING Last Admin: 06/19/18 02:52 Dose: 2 puff Aspirin (Aspirin Ec Tab*) 81 mg PO DAILY [facility] Last Admin: 06/19/18 08:18 Dose: 81 mg Atenolol (Tenormin Tab*) 25 mg PO BID [facility] Last Admin: 06/19/18 08:17 Dose: 25 mg Celecoxib (Celebrex Cap*) 200 mg PO DAILY [facility] Last Admin: 06/19/18 08:17 Dose: 200 mg Chlorpromazine HCl (Thorazine Tab*) 50 mg PO Q6H PRN PRN Reason: AGITATION Last Admin: 06/16/18 02:37 Dose: 50 mg Cyclobenzaprine HCl (Flexeril Tab*) 10 mg PO DAILY PRN PRN Reason: pain Last Admin: 06/19/18 10:08 Dose: 10 mg Device (Tiotropium Inhaler Device*) 1 each INH .USE w/ SPIRIVA CAPS [facility] Diclofenac Sodium (Voltaren 1% Gel (Nf)) 1 applic TOPICAL DAILY [facility]; Protocol Last Admin: 06/19/18 08:22 Dose: 1 applic Diphenhydramine HCl (Benadryl Po*) 50 mg PO Q6H PRN PRN Reason: AGITATION/INSOMNIA Last Admin: 06/19/18 10:08 Dose: 50 mg Folic Acid (Folvite Tab*) 1 mg PO DAILY [facility] Last Admin: 06/19/18 08:19 Dose: 1 mg Hydroxychloroquine Sulfate (Plaquenil Tab*) 200 mg PO BID [facility] Last Admin: 06/19/18 08:19 Dose: 200 mg Lidocaine (Lidoderm 5% Patch*) 1 patch TRANSDERM DAILY [facility] Last Admin: 06/19/18 08:19 Dose: 1 patch Lurasidone HCl (Latuda) 80 mg PO 1700 [facility] Last Admin: 06/18/18 16:21 Dose: Not Given Melatonin (Melatonin) 3 mg PO BEDTIME [facility]; Protocol Last Admin: 06/18/18 20:24 Dose: 3 mg Mometasone Furoate/Formoterol Fumar (Dulera 200/5 Mdi*) 2 puff INH BID [facility] Last Admin: 06/19/18 08:20 Dose: 2 puff Montelukast Sodium (Singulair Tab*) 10 mg PO BEDTIME [facility] Last Admin: 06/18/18 20:24 Dose: 10 mg Multi-Ingredient Mouthwash/Gargle (Magic M W2 [place]/Maal/Nyst/Lido*) 5 ml SWISH SPIT QID PRN PRN Reason: mouth pain Multivitamins (Theragran Tab*) 1 tab PO DAILY [facility] Last Admin: 06/19/18 08:18 Dose: 1 tab Nicotine (Nicotine Inhaler*) 10 mg INH Q2H PRN PRN Reason: CRAVING Omeprazole (Prilosec Cap*) 20 mg PO DAILY [facility] Last Admin: 06/19/18 08:18 Dose: 20 mg Pharmacy Profile Note (Lidocaine Patch Remove*) 1 note N/A 2100 [facility] Last Admin: 06/19/18 02:54 Dose: 1 note Thiamine HCl (Vitamin B-1 Tab*) 100 mg PO DAILY [facility] Last Admin: 06/19/18 08:18 Dose: 100 mg Tiotropium [place] (Spiriva Cap.Inh*) 1 cap INH DAILY [facility] Last Admin: 06/19/18 08:24 Dose: 1 cap Zolpidem Tartrate (Ambien Tab*) 5 mg PO BEDTIME PRN PRN Reason: INSOMNIA Last Admin: 06/18/18 20:24 Dose: 5 mg - Discharge Plan Discharge Plan: Inpatient Hospitalization
[2018-06-19] MEDS: Magic M W2 Ben/Maal/Nyst/Lido* 240 ML MOUTHWASH (alt formulation) SWISH SPIT PRN (16:14)
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
[2018-06-19] MEDS: Lurasidone(*) 80 MG TAB PO SCH (18:53)
[2018-06-19] MEDS: Melatonin 3 MG TAB PO SCH (21:55)
[2018-06-19] MEDS: Montelukast Sodium TAB* 10 MG PO SCH (21:55)
[2018-06-20] MEDS: Acetaminophen TAB* 325 MG PO PRN ×2 (00:20→13:38)
[2018-06-20] MEDS: Magic M W2 Ben/Maal/Nyst/Lido* 240 ML MOUTHWASH (alt formulation) SWISH SPIT PRN ×2 (00:20→18:12)
[2018-06-20] MEDS: Albuterol HFA INHALER* 8 gm MDI INH PRN ×2 (03:55→20:25)
[2018-06-20] MEDS: Atenolol TAB* 25 MG PO SCH (07:28)
[2018-06-20] MEDS: Folic Acid TAB* 1 MG PO SCH (08:27)
[2018-06-20] MEDS: Vitamin THERAPEUTIC TAB PO SCH (08:27)
[2018-06-20] MEDS: Hydroxychloroquine TAB* 200 MG PO SCH ×2 (08:27→20:32)
[2018-06-20] MEDS: Thiamine TAB* 100 MG TAB PO SCH (08:27)
[2018-06-20] MEDS: celeCOXIB CAP* 100 MG PO SCH (08:28)
[2018-06-20] MEDS: Lidocaine PATCH 5%* 1 PATCH TRANSDERM SCH (08:28)
[2018-06-20] MEDS: Omeprazole CAP* 20 MG PO SCH (08:28)
[2018-06-20] MEDS: Tiotropium CAP.INH* CAP.INH/18 MCG (USE ORDER SET !) INH SCH (08:29)
[2018-06-20] MEDS: Mometasone/Formoter 200/5 MDI INH SCH ×2 (08:29→20:35)
[2018-06-20] MEDS: Aspirin EC TAB* 81 MG TAB.EC PO SCH (08:30)
[2018-06-20] MEDS: Analgesic BALM* 114 GM TOPICAL SCH (08:34)
[2018-06-20] MEDS: CMCS: Diclofenac 1% GEL (NF) 100 GM TUBE TOPICAL SCH ×2 (10:49→11:56)
[2018-06-20] MEDS ORDERED: Zolpidem TAB* 5 MG PO PRN (11:42)
[2018-06-20] MEDS: Cyclobenzaprine TAB* 10 MG PO PRN ×2 (11:53→18:14)
[2018-06-20] MEDS: Divalproex DR TAB(*) 500 MG PO SCH ×2 (11:53→20:31)
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
[2018-06-20] MEDS: Metoprolol Succinate XL TAB* 25 MG PO SCH (13:37)
[2018-06-20] MEDS: chlorproMAZINE TAB* 50 MG Q6H PRN AGITATION PO (13:38)
[2018-06-20] MEDS: Lurasidone(*) 80 MG TAB PO SCH (18:09)
[2018-06-20] MEDS: Melatonin 3 MG TAB PO SCH (20:32)
[2018-06-20] MEDS: Montelukast Sodium TAB* 10 MG PO SCH (20:33)
[2018-06-20] MEDS: Lidocaine Patch REMOVE* 1 NOTE MISC SCH (20:52)
[2018-06-21] MEDS: Metoprolol Succinate XL TAB* 25 MG PO SCH (07:57)
[2018-06-21] MEDS: Acetaminophen TAB* 325 MG PO PRN (07:57)
[2018-06-21] MEDS: Omeprazole CAP* 20 MG PO SCH (07:58)
[2018-06-21] MEDS: Folic Acid TAB* 1 MG PO SCH (07:59)
[2018-06-21] MEDS: Thiamine TAB* 100 MG TAB PO SCH (07:59)
[2018-06-21] MEDS: Divalproex DR TAB(*) 500 MG PO SCH ×2 (07:59→20:48)
[2018-06-21] MEDS: Vitamin THERAPEUTIC TAB PO SCH (07:59)
[2018-06-21] MEDS: Aspirin EC TAB* 81 MG TAB.EC PO SCH (08:00)
[2018-06-21] MEDS: Tiotropium CAP.INH* CAP.INH/18 MCG (USE ORDER SET !) INH SCH (08:00)
[2018-06-21] MEDS: Mometasone/Formoter 200/5 MDI INH SCH ×2 (08:01→20:48)
[2018-06-21] MEDS: Lidocaine PATCH 5%* 1 PATCH TRANSDERM SCH (08:01)
[2018-06-21] MEDS: Hydroxychloroquine TAB* 200 MG PO SCH ×2 (08:01→20:47)
[2018-06-21] MEDS: celeCOXIB CAP* 100 MG PO SCH (08:02)
[2018-06-21] MEDS: Analgesic BALM* 114 GM TOPICAL SCH (09:25)
[2018-06-21] MEDS: Magic M W2 Ben/Maal/Nyst/Lido* 240 ML MOUTHWASH (alt formulation) SWISH SPIT PRN ×2 (09:25→17:49)
[2018-06-21] MEDS: CMCS: Diclofenac 1% GEL (NF) 100 GM TUBE TOPICAL SCH (09:26)
--- NOTE | 2018-06-21 16:37 | PN ---
Subjective - Subjective Date of Service: 06/21/18 Service Type: [id number] Hosp care 35 min high complexity Subjective: Patient and her sonMargarito met with database report writer and RAMON Ramos to discuss treatment update and discharge planning. Providers discussed concerns regarding patient's poor insight and judgment and psychosomatic complaints, as well as patient's improvement since admission. Providers recommend continued hospitalization to improve stabilization and allow son to coordinate logistics for discharge planning. Objective - Appearance Appearance: Well Developed/Nourished Dysmorphic Features: No Hygiene: Normal Grooming: Well Kept - Behavior Psychomotor Activities: Normal Exhibits Abnormal Movement: No - Attitude and Relatedness Attitude and Relatedness: Superficially Cooperative Eye Contact: Fair - Speech Quality: Pressured Latencies: Normal Quantity: Copious - Mood Patient's Decription of Mood: "Good" - Affect Observed Affect: Expansive Affect Consistent with: Euphoria - Thought Process Patient's Thought Process: Loose Associations, Circumstantial, Over Inclusive Thought Content: Yes Paranoid Ideation, No Passive Wish, No Suicidal Planning, No Homicidal Ideation - Sensorium Experiencing Hallucinations: No, Sensorium is Clear Type of Hallucinations: Visual: No, Auditory: No, Command: No - Level of Consciousness Level of Consciousness: Alert Orientation: Yes Intact, Yes Orientated to Time, Yes Orientated to Place, Yes Orientated to Person - Impulse Control Impulse Control: Poor - Insight and Judgement Insight and Judgement: Poor - Group Participation Particating in Group Activities: Yes Group Participation Comments: partial - Medication Management Medication Management Adherence: Partial Assessment - Assessment Merits Inpatient Hospitalization: For Immediate Safety, For Stabilization, For Discharge Planning, Pending Safe DC Plan Inpatient DSM-V Dx: F31.64 Clinical Impression: 57yo wf who presented to ED via police due to erratic driving and disorganized behavior. Collateral information obtained denotes a history of bipolar disorder , PTSD, and probable cannabis use disorder. Patient presents as hypomanic and is accepting medications. She merits continued stabilization. MHU: Problem List - Patient Problems (1) Bipolar 1 disorder, mixed Current Visit: Yes Status: Acute Priority: High Code(s): F31.60 - BIPOLAR DISORDER, CURRENT EPISODE MIXED, UNSPECIFIED SNOMED Code(s): 32700704 Comment: trial depakote, continue lurasidone Plan - Plan Treatment Plan: Name: MILLICENT SPARKS Birthdate: 1960 [id number] continue acute intensive psychiatric treatment. may decrease to q30min observation. may have staff pass. tentative discharge 06/22/18. Continued Medication Management: Start Medication Medications: Current Medications Acetaminophen (Tylenol Tab*) 650 mg PO Q4H PRN PRN Reason: PAIN or TEMP > 101 F Last Admin: 06/21/18 07:57 Dose: 650 mg Al Hydrox/Mg Hydrox/Simethicone (Maalox Plus*) 30 ml PO Q4H PRN PRN Reason: INDIGESTION Albuterol (Ventolin Hfa Inhaler*) 2 puff INH Q4H PRN PRN Reason: SOB/WHEEZING Last Admin: 06/20/18 20:25 Dose: 2 puff Aspirin (Aspirin Ec Tab*) 81 mg PO DAILY [facility] Last Admin: 06/21/18 08:00 Dose: 81 mg Celecoxib (Celebrex Cap*) 200 mg PO DAILY [facility] Last Admin: 06/21/18 08:02 Dose: 200 mg Chlorpromazine HCl (Thorazine Tab*) 50 mg PO Q6H PRN PRN Reason: AGITATION Last Admin: 06/20/18 13:38 Dose: 50 mg Cyclobenzaprine HCl (Flexeril Tab*) 10 mg PO BID PRN PRN Reason: pain Last Admin: 06/20/18 18:14 Dose: 10 mg Device (Tiotropium Inhaler Device*) 1 each INH .USE w/ SPIRIVA CAPS [facility] Diclofenac Sodium (Voltaren 1% Gel (Nf)) 1 applic TOPICAL DAILY [facility]; Protocol Last Admin: 06/21/18 09:26 Dose: 1 applic Diphenhydramine HCl (Benadryl Po*) 50 mg PO Q6H PRN PRN Reason: AGITATION/INSOMNIA Last Admin: 06/19/18 10:08 Dose: 50 mg Divalproex Sodium (Depakote Dr Tab(*)) 500 mg PO BID [facility] Last Admin: 06/21/18 07:59 Dose: 500 mg Folic Acid (Folvite Tab*) 1 mg PO DAILY [facility] Last Admin: 06/21/18 07:59 Dose: 1 mg Hydroxychloroquine Sulfate (Plaquenil Tab*) 200 mg PO BID [facility] Last Admin: 06/21/18 08:01 Dose: 200 mg Lidocaine (Lidoderm 5% Patch*) 1 patch TRANSDERM DAILY [facility] Last Admin: 06/21/18 08:01 Dose: 1 patch Lurasidone HCl (Latuda) 80 mg PO 1700 [facility] Last Admin: 06/20/18 18:09 Dose: 80 mg Melatonin (Melatonin) 3 mg PO BEDTIME [facility]; Protocol Last Admin: 06/20/18 20:32 Dose: 3 mg Metoprolol Succinate (Toprol Xl Tab*) 50 mg PO DAILY [facility] Last Admin: 06/21/18 07:57 Dose: 50 mg Mometasone Furoate/Formoterol Fumar (Dulera 200/5 Mdi*) 2 puff INH BID [facility] Last Admin: 06/21/18 08:01 Dose: 2 puff Montelukast Sodium (Singulair Tab*) 10 mg PO BEDTIME [facility] Last Admin: 06/20/18 20:33 Dose: 10 mg Multi-Ingredient Liniment/Rub (Janak Cardoso*) 1 applic TOPICAL DAILY [facility] Last Admin: 06/21/18 09:25 Dose: 1 applic Multi-Ingredient Mouthwash/Gargle (Magic M W2 Janak/Maal/Nyst/Lido*) 5 ml SWISH SPIT QID PRN PRN Reason: mouth pain Last Admin: 06/21/18 09:25 Dose: 5 ml Multivitamins (Theragran Tab*) 1 tab PO DAILY [facility] Last Admin: 06/21/18 07:59 Dose: 1 tab Nicotine (Nicotine Inhaler*) 10 mg INH Q2H PRN PRN Reason: CRAVING Omeprazole (Prilosec Cap*) 20 mg PO DAILY [facility] Last Admin: 06/21/18 07:58 Dose: 20 mg Pharmacy Profile Note (Lidocaine Patch Remove*) 1 note N/A 2100 [facility] Last Admin: 06/20/18 20:52 Dose: 1 note Thiamine HCl (Vitamin B-1 Tab*) 100 mg PO DAILY [facility] Last Admin: 06/21/18 07:59 Dose: 100 mg Tiotropium [place] (Spiriva Cap.Inh*) 1 cap INH DAILY [facility] Last Admin: 06/21/18 08:00 Dose: 1 cap Zolpidem Tartrate (Ambien Tab*) 10 mg PO BEDTIME PRN PRN Reason: INSOMNIA - Discharge Plan Discharge Plan: Inpatient Hospitalization
[2018-06-21] MEDS: Lurasidone(*) 80 MG TAB PO SCH (17:49)
[2018-06-21] MEDS: Lidocaine Patch REMOVE* 1 NOTE MISC SCH (20:47)
[2018-06-21] MEDS: Melatonin 3 MG TAB PO SCH (20:48)
[2018-06-21] MEDS: Montelukast Sodium TAB* 10 MG PO SCH (20:49)
[2018-06-21] MEDS: Cyclobenzaprine TAB* 10 MG PO PRN (20:51)
[2018-06-22] MEDS: Acetaminophen TAB* 325 MG PO PRN ×2 (03:44→14:29)
[2018-06-22] MEDS: celeCOXIB CAP* 100 MG PO SCH (09:17)
[2018-06-22] MEDS: Aspirin EC TAB* 81 MG TAB.EC PO SCH (09:17)
[2018-06-22] MEDS: Folic Acid TAB* 1 MG PO SCH (09:18)
[2018-06-22] MEDS: Hydroxychloroquine TAB* 200 MG PO SCH (09:18)
[2018-06-22] MEDS: Divalproex DR TAB(*) 500 MG PO SCH (09:18)
[2018-06-22] MEDS: Omeprazole CAP* 20 MG PO SCH (09:19)
[2018-06-22] MEDS: Metoprolol Succinate XL TAB* 25 MG PO SCH (09:19)
[2018-06-22] MEDS: Tiotropium CAP.INH* CAP.INH/18 MCG (USE ORDER SET !) INH SCH (09:20)
[2018-06-22] MEDS: Thiamine TAB* 100 MG TAB PO SCH (09:20)
[2018-06-22] MEDS: Vitamin THERAPEUTIC TAB PO SCH (09:20)
[2018-06-22] MEDS: Mometasone/Formoter 200/5 MDI INH SCH (09:25)
[2018-06-22] MEDS: Magic M W2 Ben/Maal/Nyst/Lido* 240 ML MOUTHWASH (alt formulation) SWISH SPIT PRN (09:28)
[2018-06-22 09:32] VITALS: BP 123/70
[2018-06-22] MEDS: Cyclobenzaprine TAB* 10 MG PO PRN (14:16)
[2018-06-22] MEDS: Lidocaine PATCH 5%* 1 PATCH TRANSDERM SCH (14:30)
[2018-06-22] MEDS: CMCS: Diclofenac 1% GEL (NF) 100 GM TUBE TOPICAL SCH (14:31)
[2018-06-22] MEDS: Analgesic BALM* 114 GM TOPICAL SCH (14:31)
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
== END 2018-06-22 16:41 | disposition home or self-care (01) | DRG 885 ==
LOC: ED 15:51 → BSU 06-12 01:15
PROVIDERS: ADMIT Psychiatry & Neurology Psychiatry; ATTEND Psychiatry & Neurology Psychiatry
PROC: GZHZZZZ Group Psychotherapy (ICD-10-PCS; principal; 2018-06-14)
DX: F31.64 Bipolar disorder, current episode mixed, severe, with psychotic features (principal); K50.90 Crohn's disease, unspecified, without complications; F13.20 Sedative, hypnotic or anxiolytic dependence, uncomplicated; F11.20 Opioid dependence, uncomplicated; I10 Essential (primary) hypertension; J44.9 Chronic obstructive pulmonary disease, unspecified; F12.90 Cannabis use, unspecified, uncomplicated; M06.9 Rheumatoid arthritis, unspecified; M75.102 Unspecified rotator cuff tear or rupture of left shoulder, not specified as traumatic; E66.9 Obesity, unspecified; F43.10 Post-traumatic stress disorder, unspecified; Z96.652 Presence of left artificial knee joint; Z82.5 Family history of asthma and other chronic lower respiratory diseases; Z85.828 Personal history of other malignant neoplasm of skin; Z88.2 Allergy status to sulfonamides; Z88.8 Allergy status to other drugs, medicaments and biological substances; Z91.041 Radiographic dye allergy status; Z91.040 Latex allergy status; Z72.89 Other problems related to lifestyle; Z68.29 Body mass index [BMI] 29.0-29.9, adult; Z79.82 Long term (current) use of aspirin
CPT/HCPCS: 36415; 72220; 80053; 80164; 80320; 80329; 84443; 85025; 85060; 90853; 99222; 99232; 99233; 99238; 99284; A9270-GY; G0480; G8978-GP-CI; G8979-GP-CI; G8980-GP-CI; J2060